=== PATIENT | female | born 1935 | race Caucasian/White ===

== ENCOUNTER → 2017-02-04 | Outpatient (CLI) | payer OTHER, MEDICAID ==
[~2017-02-04] MED LIST: ACET-2123 PO; AMLO-511 PO; ASPI-556 PO; CARB1TAB41 PO; CARV3 PO; DICY20 PO; DIGO125T87 PO; FURO40 PO; LORA10CA PO; MECL-111 PO; OMEP20TA2 PO
== END | disposition home or self-care (01) ==
LOC: RADMN 13:12
PROVIDERS: ATTEND Family Medicine
DX: I67.82 Cerebral ischemia (principal); R90.82 White matter disease, unspecified; I65.29 Occlusion and stenosis of unspecified carotid artery
CPT/HCPCS: 70450

== ENCOUNTER 2017-02-10 12:52 | Emergency (ER) | payer OTHER ==
[~2017-02-10] VITALS: Ht 149.9 cm; Wt 71.8 kg
[2017-02-10] MEDS ORDERED: IBUPROFEN 600 MG TABLET PO ONE (16:15)
[2017-02-10 17:17] VITALS: BP 169/69
== END 2017-02-10 17:20 | disposition home or self-care (01) ==
LOC: EMS 12:54
DX: S00.83XA Contusion of other part of head, initial encounter (principal); S50.02XA Contusion of left elbow, initial encounter; S60.222A Contusion of left hand, initial encounter; S00.12XA Contusion of left eyelid and periocular area, initial encounter; I11.0 Hypertensive heart disease with heart failure; I50.9 Heart failure, unspecified; N28.9 Disorder of kidney and ureter, unspecified; K21.9 Gastro-esophageal reflux disease without esophagitis; Z85.3 Personal history of malignant neoplasm of breast; W06.XXXA Fall from bed, initial encounter; Y93.89 Activity, other specified; Y92.89 Other specified places as the place of occurrence of the external cause; Y99.8 Other external cause status
CPT/HCPCS: 70450; 70486; 72125; 72170; 93005; 99284

== ENCOUNTER → 2017-09-04 | Outpatient (CLI) | payer MEDICARE ==
[~2017-09-04] MED LIST changes: -ASPI-556 PO
== END | disposition home or self-care (01) ==
LOC: RADPV 12:19
PROVIDERS: ATTEND Internal Medicine Nephrology
DX: R07.9 Chest pain, unspecified (principal); R05 Cough; M85.88 Other specified disorders of bone density and structure, other site; I51.7 Cardiomegaly
CPT/HCPCS: 71046

== ENCOUNTER → 2019-06-08 | Outpatient (CLI) | payer MEDICARE, OTHER ==
[~2019-06-08] MED LIST changes: -AMLO-511 PO; +AMLO5TAB9 PO
== END | disposition home or self-care (01) ==
LOC: RADPV 11:09
PROVIDERS: ATTEND Internal Medicine Nephrology
DX: M25.551 Pain in right hip (principal); M25.571 Pain in right ankle and joints of right foot; M16.0 Bilateral primary osteoarthritis of hip; M85.88 Other specified disorders of bone density and structure, other site; M47.817 Spondylosis without myelopathy or radiculopathy, lumbosacral region; M79.89 Other specified soft tissue disorders; M77.31 Calcaneal spur, right foot; W19.XXXA Unspecified fall, initial encounter; Y93.89 Activity, other specified; Y92.89 Other specified places as the place of occurrence of the external cause; Y99.8 Other external cause status
CPT/HCPCS: 73502